=== PATIENT | female | born 1930 | race Caucasian/White ===

== ENCOUNTER → 2016-07-12 | Outpatient (CLI) | payer MEDICARE, OTHER ==
[~2016-07-12] MED LIST: NATURE'S BLEND400 I1 PO; NATURE-THROI16.25 MG; ZANTAC150 MG
== END ==
LOC: LAB 10:31
DX: I10 Essential (primary) hypertension (principal); E03.4 Atrophy of thyroid (acquired)

== ENCOUNTER → 2017-10-12 | Outpatient (CLI) | payer MEDICARE, OTHER ==
[2014-04-08 23:56] VITALS: BP 123/57
[2017-10-12 09:22] LABS: URINE APPEARANCE CLEAR; URINE BILIRUBIN NEGATIVE (NEGATIVE); URINE BLOOD NEGATIVE (NEGATIVE); URINE COLOR YELLOW; URINE GLUCOSE NEGATIVE (NEGATIVE); URINE KETONE NEGATIVE (NEGATIVE); URINE LEUKOCYTE ESTERASE 2+ (NEGATIVE); URINE NITRATE NEGATIVE (NEGATIVE); URINE PROTEIN(semi-quant) NEGATIVE (NEGATIVE); URINE UROBILINOGEN NORMAL (NORMAL)
[2017-10-12 09:23] LABS: URINE MUCUS PRESENT (NOT PRESENT)
== END ==
LOC: LAB 08:45
PROVIDERS: Internal Medicine
DX: R30.0 Dysuria (principal); N39.0 Urinary tract infection, site not specified

== ENCOUNTER → 2017-11-17 | Outpatient (CLI) | payer MEDICARE, OTHER ==
[2014-04-08 23:56] VITALS: BP 123/57
[2017-11-17 10:13] LABS: BASO # 0.1 (0.02-0.10); EOS # 0.1 (0.04-0.40); HEMATOCRIT 41.7 % (37.0-47.0); HEMOGLOBIN 13.8 g/dL (12.5-16.0); LYMPH# 1.7 (1.50-4.00); MEAN CELL VOLUME 89 fl (78-100); MEAN CORPUSCULAR HEMOGLOBIN 30 pg (27-31); MEAN CORPUSCULAR HGB CONC 33 g/dL (33-37); MEAN PLATELET VOLUME 9.9 fl (7.4-10.4); MONO # 0.5 (0.20-0.80); NEU # 3.7 (1.40-6.50); PLATELET COUNT 297 K/mm3 (130-400); RED BLOOD COUNT 4.67 M/mm3 (4.10-5.30); RED CELL DISTRIBUTION WIDTH 14.1 % (11.5-14.5); WHITE BLOOD COUNT 6.1 K/mm3 (4.8-10.8)
[2017-11-17 10:29] LABS: ALBUMIN 4.7 g/dL (3.5-5.0); CALCIUM 9.7 mg/dL (8.4-10.2); POTASSIUM 3.9 mmol/L (3.6-5.0); TOTAL BILIRUBIN 1.3 mg/dL (0.2-1.3)
[2017-11-17 11:17] LABS: ERYTHROCYTE SEDIMENTATION RATE 14 mm/hr (0-30)
== END ==
LOC: LAB 09:52
PROVIDERS: Internal Medicine
DX: Z12.11 Encounter for screening for malignant neoplasm of colon (principal); M10.9 Gout, unspecified; E78.2 Mixed hyperlipidemia; I10 Essential (primary) hypertension; M85.80 Other specified disorders of bone density and structure, unspecified site; E03.9 Hypothyroidism, unspecified; E53.8 Deficiency of other specified B group vitamins

== ENCOUNTER → 2018-01-04 | Outpatient (CLI) | payer MEDICARE, OTHER ==
[2014-04-08 23:56] VITALS: BP 123/57
== END ==
LOC: RAD 12-28 08:30 → MAMMO 12-28 08:30 → RAD 09:11
DX: Z13.820 Encounter for screening for osteoporosis (principal); M81.0 Age-related osteoporosis without current pathological fracture

== ENCOUNTER → 2018-07-26 | Outpatient (CLI) | payer MEDICARE, OTHER ==
[2014-04-08 23:56] VITALS: BP 123/57
[2018-07-26 12:02] LABS: URINE APPEARANCE HAZY; URINE COLOR YELLOW
[2018-07-26 12:03] LABS: URINE BILIRUBIN NEGATIVE (NEGATIVE); URINE BLOOD NEGATIVE (NEGATIVE); URINE GLUCOSE NEGATIVE (NEGATIVE); URINE KETONE NEGATIVE (NEGATIVE); URINE LEUKOCYTE ESTERASE NEGATIVE (NEGATIVE); URINE NITRATE NEGATIVE (NEGATIVE); URINE PROTEIN(semi-quant) NEGATIVE (NEGATIVE); URINE UROBILINOGEN NORMAL (NORMAL)
== END ==
LOC: LAB 11:17
PROVIDERS: Nurse Practitioner Family
DX: R30.0 Dysuria (principal)

== ENCOUNTER 2018-08-09 12:50 | Inpatient (IN) | payer MEDICARE, OTHER ==
[~2018-08-09] VITALS: Ht 154.9 cm; Wt 59.9 kg
[~2018-08-09 12:50] MED LIST changes: +LEVOTHYROXINE0.05 MG PO; -NATURE'S BLEND400 I1 PO; -NATURE-THROI16.25 MG; +OMEPRAZOLE20 MG PO; +VITAMIN D400 UNI1; -ZANTAC150 MG
[2018-08-09 13:15] VITALS: BP 107/68
[2018-08-09 13:20] LABS: EOS # 0.2 (0.04-0.40); EOS % 1.9 % (1.0-5.0); HEMATOCRIT 32.8 % (37.0-47.0); HEMOGLOBIN 10.7 g/dL (12.5-16.0); LYMPH# 1.5 (1.50-4.00); MEAN CELL VOLUME 89 fl (78-100); MEAN CORPUSCULAR HEMOGLOBIN 29 pg (27-31); MEAN CORPUSCULAR HGB CONC 33 g/dL (33-37); MEAN PLATELET VOLUME 10.2 fl (7.4-10.4); MONO # 0.8 (0.20-0.80); NEU # 6.5 (1.40-6.50); PLATELET COUNT 257 K/mm3 (130-400); RED CELL DISTRIBUTION WIDTH 13.7 % (11.5-14.5)
[2018-08-09 13:21] VITALS: BP 107/68
[2018-08-09 13:43] LABS: ALBUMIN 3.6 g/dL (3.5-5.0); CALCIUM 8.4 mg/dL (8.4-10.2); TOTAL BILIRUBIN 0.8 mg/dL (0.2-1.3); TOTAL PROTEIN 6.4 g/dL (6.3-8.2)
[2018-08-09] MEDS ORDERED: VITAMIN C500 M6 (14:06)
[2018-08-09] MEDS ORDERED: CALCIUM 600 MG-1 TAB PO (14:09)
[2018-08-09] MEDS ORDERED: ASPIRIN E.C. 8181 MG PO (14:09)
[2018-08-09] MEDS ORDERED: NORCO 325 MG-51 TA1 PO (14:10)
[2018-08-09 15:27] LABS: URINE APPEARANCE CLEAR; URINE COLOR YELLOW
[2018-08-09 15:28] LABS: URINE BILIRUBIN NEGATIVE (NEGATIVE); URINE BLOOD NEGATIVE (NEGATIVE); URINE GLUCOSE NEGATIVE (NEGATIVE); URINE KETONE NEGATIVE (NEGATIVE); URINE LEUKOCYTE ESTERASE NEGATIVE (NEGATIVE); URINE NITRATE NEGATIVE (NEGATIVE); URINE PROTEIN(semi-quant) NEGATIVE (NEGATIVE); URINE UROBILINOGEN NORMAL (NORMAL)
[2018-08-09 18:00] VITALS: BP 131/68
[2018-08-09 18:53] VITALS: BP 131/68
[2018-08-10 06:08] VITALS: BP 133/75
[2018-08-10 07:04] VITALS: BP 133/75
[2018-08-10 18:57] VITALS: BP 128/95
[2018-08-11 06:23] VITALS: BP 165/88
[2018-08-11 16:50] VITALS: BP 125/75
[2018-08-11 16:51] VITALS: BP 104/66
[2018-08-12 06:07] VITALS: BP 123/65
[2018-08-12 18:30] VITALS: BP 144/75
[2018-08-13 06:40] VITALS: BP 130/70
[2018-08-13 18:46] VITALS: BP 126/66
[2018-08-14 06:38] VITALS: BP 131/71
[2018-08-14 18:01] VITALS: BP 140/75
[2018-08-15 05:49] VITALS: BP 123/73
[2018-08-15 18:36] VITALS: BP 146/76
[2018-08-16 06:32] VITALS: BP 114/69
[2018-08-16 18:25] VITALS: BP 128/73
[2018-08-17 06:06] VITALS: BP 129/75
[2018-08-17 18:00] VITALS: BP 166/77
[2018-08-18 05:55] VITALS: BP 150/73
[2018-08-18 18:58] VITALS: BP 150/72
[2018-08-19 05:31] VITALS: BP 128/75
[2018-08-19 18:15] VITALS: BP 116/72
[2018-08-20 06:27] VITALS: BP 141/76
[2018-08-20 19:02] VITALS: BP 148/50
[2018-08-21 06:21] VITALS: BP 131/77
[2018-08-21 18:00] VITALS: BP 140/67
[2018-08-22 06:27] VITALS: BP 127/71
[2018-08-22 16:52] VITALS: BP 131/64
[2018-08-23 05:46] VITALS: BP 144/74
[2018-08-23] MEDS ORDERED: NORCO 325 MG-51 TA1 PO (12:34)
== END 2018-08-23 13:05 | disposition home health service (06) | DRG 948 ==
LOC: MED/SURG 12:50
PROVIDERS: ADMIT Nurse Practitioner Primary Care
DX: R53.81 Other malaise (principal); S72.401A Unspecified fracture of lower end of right femur, initial encounter for closed fracture; I10 Essential (primary) hypertension; E03.9 Hypothyroidism, unspecified; K21.9 Gastro-esophageal reflux disease without esophagitis; W18.39XA Other fall on same level, initial encounter

== ENCOUNTER → 2018-09-11 | Outpatient (CLI) | payer MEDICARE, OTHER ==
[2018-08-23 05:46] VITALS: BP 144/74
[~2018-09-11] MED LIST changes: +ASPIRIN E.C. 8181 MG PO; +CALCIUM 600 MG-1 TAB PO; +NORCO 325 MG-51 TA1 PO; +VITAMIN C500 M6
[2018-09-11 10:03] LABS: BASO # 0.1 (0.02-0.10); EOS # 0.2 (0.04-0.40); EOS % 2.1 % (1.0-5.0); HEMATOCRIT 39.6 % (37.0-47.0); MEAN CELL VOLUME 89 fl (78-100); MEAN CORPUSCULAR HEMOGLOBIN 29 pg (27-31); MEAN CORPUSCULAR HGB CONC 33 g/dL (33-37); MEAN PLATELET VOLUME 9.6 fl (7.4-10.4); MONO # 0.8 (0.20-0.80); PLATELET COUNT 419 K/mm3 (130-400); RED BLOOD COUNT 4.46 M/mm3 (4.10-5.30); RED CELL DISTRIBUTION WIDTH 13.8 % (11.5-14.5); WHITE BLOOD COUNT 8.1 K/mm3 (4.8-10.8)
[2018-09-11 10:54] LABS: ALBUMIN 4.4 g/dL (3.4-4.8); CALCIUM 10.2 mg/dL (8.4-10.2); POTASSIUM 4.3 mmol/L (3.5-5.1); TOTAL BILIRUBIN 0.8 mg/dL (0.2-1.2)
== END ==
LOC: LAB 09:51
PROVIDERS: Internal Medicine
DX: I10 Essential (primary) hypertension (principal); E03.9 Hypothyroidism, unspecified

== ENCOUNTER 2018-10-10 09:20 | Outpatient (RCR) | payer MEDICARE, OTHER | END 2018-10-12 14:40 | LOC: OPPGERO 09:20 | DX: F43.21 Adjustment disorder with depressed mood (principal); I10 Essential (primary) hypertension; E03.9 Hypothyroidism, unspecified; M81.0 Age-related osteoporosis without current pathological fracture; K21.9 Gastro-esophageal reflux disease without esophagitis ==

== ENCOUNTER 2018-10-15 09:32 | Outpatient (RCR) | payer MEDICARE, OTHER | END 2018-11-14 17:25 | LOC: OPPGERO 09:32 | DX: F43.21 Adjustment disorder with depressed mood (principal); E03.9 Hypothyroidism, unspecified; I10 Essential (primary) hypertension; K80.20 Calculus of gallbladder without cholecystitis without obstruction; M81.0 Age-related osteoporosis without current pathological fracture; K21.9 Gastro-esophageal reflux disease without esophagitis ==

== ENCOUNTER 2018-11-15 09:27 | Outpatient (RCR) | payer MEDICARE, OTHER | END 2018-12-14 13:05 | LOC: OPPGERO 09:27 | DX: F43.21 Adjustment disorder with depressed mood (principal); E03.9 Hypothyroidism, unspecified; I10 Essential (primary) hypertension; K21.9 Gastro-esophageal reflux disease without esophagitis; K80.20 Calculus of gallbladder without cholecystitis without obstruction; M81.0 Age-related osteoporosis without current pathological fracture; Z79.1 Long term (current) use of non-steroidal anti-inflammatories (NSAID); Z79.82 Long term (current) use of aspirin; Z79.891 Long term (current) use of opiate analgesic; Z79.899 Other long term (current) drug therapy ==

== ENCOUNTER → 2019-01-31 | Outpatient (CLI) | payer MEDICARE, OTHER ==
[2019-01-31 13:18] LABS: BASO # 0.1 (0.02-0.10); EOS # 0.3 (0.04-0.40); EOS % 3.9 % (1.0-5.0); HEMATOCRIT 38.7 % (37.0-47.0); HEMOGLOBIN 12.6 g/dL (12.5-16.0); LYMPH# 2.1 (1.50-4.00); MEAN CELL VOLUME 87 fl (78-100); MEAN CORPUSCULAR HEMOGLOBIN 28 pg (27-31); MEAN CORPUSCULAR HGB CONC 33 g/dL (33-37); MEAN PLATELET VOLUME 10.2 fl (7.4-10.4); MONO # 0.7 (0.20-0.80); NEU # 4.5 (1.40-6.50); PLATELET COUNT 342 K/mm3 (130-400); RED BLOOD COUNT 4.43 M/mm3 (4.10-5.30); RED CELL DISTRIBUTION WIDTH 14.9 % (11.5-14.5); WHITE BLOOD COUNT 7.6 K/mm3 (4.8-10.8)
[2019-01-31 13:27] LABS: POTASSIUM 4.5 mmol/L (3.5-5.1)
[2019-01-31 13:28] LABS: ALBUMIN 4.4 g/dL (3.4-4.8)
[2019-01-31 13:29] LABS: CALCIUM 10.1 mg/dL (8.3-10.5)
[2019-01-31 13:30] LABS: TOTAL PROTEIN 7.9 g/dL (6.2-8.1)
[2019-01-31 13:32] LABS: TOTAL BILIRUBIN 0.6 mg/dL (0.2-1.2)
[2019-01-31 14:20] LABS: ERYTHROCYTE SEDIMENTATION RATE 40 mm/hr (0-30)
== END ==
LOC: LAB 12:51
PROVIDERS: Internal Medicine
DX: Z12.11 Encounter for screening for malignant neoplasm of colon (principal); I11.0 Hypertensive heart disease with heart failure; E78.2 Mixed hyperlipidemia; E53.8 Deficiency of other specified B group vitamins; M85.89 Other specified disorders of bone density and structure, multiple sites; M1A.9XX0 Chronic gout, unspecified, without tophus (tophi); E03.9 Hypothyroidism, unspecified

== ENCOUNTER → 2019-02-11 | Outpatient (CLI) | payer MEDICARE, OTHER | LOC: LAB 13:45 | DX: Z12.11 Encounter for screening for malignant neoplasm of colon (principal); E53.8 Deficiency of other specified B group vitamins; I10 Essential (primary) hypertension ==

== ENCOUNTER 2019-09-11 13:13 | Emergency (ER) | payer MEDICARE, OTHER ==
[~2019-09-11 13:13] MED LIST changes: -OMEPRAZOLE20 MG PO; +PRILOSEC OTC20 MG PO; +VITAMIN D325 MC1; -VITAMIN D400 UNI1
[2019-09-11 13:55] LABS: HEMATOCRIT 40.5 % (37.0-47.0); HEMOGLOBIN 13.1 g/dL (12.5-16.0); MEAN CELL VOLUME 89 fl (78-100); MEAN CORPUSCULAR HEMOGLOBIN 29 pg (27-31); MEAN CORPUSCULAR HGB CONC 32 g/dL (33-37); MEAN PLATELET VOLUME 10.1 fl (7.4-10.4); PLATELET COUNT 400 K/mm3 (130-400); RED BLOOD COUNT 4.55 M/mm3 (4.10-5.30); RED CELL DISTRIBUTION WIDTH 14.1 % (11.5-14.5); WHITE BLOOD COUNT 11.8 K/mm3 (4.8-10.8)
[2019-09-11 13:58] LABS: ALBUMIN 4.1 g/dL (3.4-4.8); POTASSIUM 3.9 mmol/L (3.5-5.1)
[2019-09-11 13:59] LABS: CALCIUM 9.5 mg/dL (8.3-10.5)
[2019-09-11 14:01] LABS: TOTAL PROTEIN 7.4 g/dL (6.2-8.1)
[2019-09-11 14:02] LABS: TOTAL BILIRUBIN 0.6 mg/dL (0.2-1.2)
[2019-09-11] MEDS ORDERED: ASPIRIN E.C. 8181 MG PO (14:12)
[2019-09-11] MEDS ORDERED: PREDNISONE10 MG PO (14:12)
[2019-09-11] MEDS ORDERED: ACETAMINOPHEN325 M1 PO (14:13)
[2019-09-11] MEDS ORDERED: CALCIUM CARBONATE PO (14:13)
[2019-09-11] MEDS ORDERED: VITAMIN B122500 MC1 (14:14)
[2019-09-11 14:30] LABS: LYMPHOCYTE 9 % (20-51); MONOCYTE 5 % (3-10); NEUTROPHILS 84 % (42-75)
[2019-09-11 14:36] LABS: URINE APPEARANCE CLOUDY; URINE BILIRUBIN NEGATIVE (NEGATIVE); URINE BLOOD 50 ery/uL (NEGATIVE); URINE COLOR YELLOW; URINE GLUCOSE NEGATIVE (NEGATIVE); URINE KETONE NEGATIVE (NEGATIVE); URINE LEUKOCYTE ESTERASE 2+ (NEGATIVE); URINE MUCUS PRESENT (NOT PRESENT); URINE NITRATE NEGATIVE (NEGATIVE); URINE PROTEIN(semi-quant) TRACE mg/dL (NEGATIVE); URINE UROBILINOGEN NORMAL (NORMAL); URINE WBC >50 /hpf (0-3)
[2019-09-11 15:30] VITALS: BP 122/93
== END 2019-09-11 15:30 | disposition other institution (70) ==
LOC: ED 13:13
PROVIDERS: Physician Assistant
DX: K57.32 Diverticulitis of large intestine without perforation or abscess without bleeding (principal); N39.0 Urinary tract infection, site not specified; I10 Essential (primary) hypertension; K21.9 Gastro-esophageal reflux disease without esophagitis; Z90.89 Acquired absence of other organs; Z79.82 Long term (current) use of aspirin
CPT/HCPCS: J3010; Q9967

== ENCOUNTER 2019-09-21 12:09 | Inpatient (IN) | payer MEDICARE, OTHER ==
[~2019-09-21] VITALS: Ht 157.5 cm; Wt 58.7 kg
[~2019-09-21 12:09] MED LIST changes: +ACETAMINOPHEN325 M1 PO; +CALCIUM CARBONATE PO; +PREDNISONE10 MG PO; +VITAMIN B122500 MC1
[2019-09-21 13:09] VITALS: BP 147/69
[2019-09-21] MEDS ORDERED: HCTZ 25MG25 MG PO (13:47)
[2019-09-21] MEDS ORDERED: ZESTRIL10 M1 PO (13:50)
[2019-09-21] MEDS ORDERED: FLAGYL500 M1 PO (13:53)
[2019-09-21] MEDS ORDERED: BACTRIM DS TAB1 EACH PO (13:54)
[2019-09-21] MEDS ORDERED: NATURAL VITAM1000 MG PO (13:57)
[2019-09-21] MEDS ORDERED: VITAMIN B122500 MC1 PO (13:57)
[2019-09-21] MEDS ORDERED: OS-CAL 500+D31 EACH PO (13:59)
[2019-09-21] MEDS ORDERED: ANTACID500 M1 PO (14:00)
[2019-09-21 18:06] VITALS: BP 163/81
[2019-09-22 05:38] VITALS: BP 156/90; BP 166/82
[2019-09-22 07:51] LABS: HEMATOCRIT 29.9 % (37.0-47.0); HEMOGLOBIN 9.4 g/dL (12.5-16.0); MEAN CELL VOLUME 88 fl (78-100); MEAN CORPUSCULAR HEMOGLOBIN 28 pg (27-31); MEAN CORPUSCULAR HGB CONC 31 g/dL (33-37); MEAN PLATELET VOLUME 8.7 fl (7.4-10.4); RED BLOOD COUNT 3.39 M/mm3 (4.10-5.30); RED CELL DISTRIBUTION WIDTH 15.3 % (11.5-14.5); WHITE BLOOD COUNT 12.4 K/mm3 (4.8-10.8)
[2019-09-22 08:25] LABS: PLATELET COUNT 761 K/mm3 (130-400)
[2019-09-22 08:26] LABS: LYMPHOCYTE 8 % (20-51); MONOCYTE 4 % (3-10); NEUTROPHILS 87 % (42-75)
[2019-09-22 08:28] LABS: POTASSIUM 3.6 mmol/L (3.5-5.1)
[2019-09-22 08:29] LABS: CALCIUM 8.5 mg/dL (8.3-10.5)
[2019-09-22 08:30] LABS: TOTAL PROTEIN 5.6 g/dL (6.2-8.1)
[2019-09-22 08:32] LABS: TOTAL BILIRUBIN 0.4 mg/dL (0.2-1.2)
[2019-09-22 18:08] VITALS: BP 150/76
[2019-09-23 05:06] VITALS: BP 156/76
[2019-09-23 17:08] VITALS: BP 136/83
[2019-09-24 05:11] VITALS: BP 146/77
[2019-09-24 17:11] VITALS: BP 130/67
[2019-09-25 05:53] VITALS: BP 111/61
[2019-09-25 16:36] VITALS: BP 133/72
[2019-09-26 05:37] VITALS: BP 124/62
[2019-09-26 17:48] VITALS: BP 160/80
[2019-09-27 05:53] VITALS: BP 136/64
[2019-09-27] MEDS ORDERED: BACTRIM DS TAB1 EACH PO (09:27)
[2019-09-27] MEDS ORDERED: FLAGYL500 M1 PO (09:27)
[2019-09-27] MEDS ORDERED: PRILOSEC OTC20 MG PO (09:28)
[2019-09-27] MEDS ORDERED: LEXAPRO 10MG10 MG PO (09:29)
== END 2019-09-27 11:35 | disposition home health service (06) | DRG 948 ==
LOC: MED/SURG 12:09
PROVIDERS: Physician Assistant; ADMIT Internal Medicine
DX: R53.81 Other malaise (principal); K57.92 Diverticulitis of intestine, part unspecified, without perforation or abscess without bleeding; I10 Essential (primary) hypertension; M10.9 Gout, unspecified; K21.9 Gastro-esophageal reflux disease without esophagitis; E03.9 Hypothyroidism, unspecified; F41.9 Anxiety disorder, unspecified; F32.9 Major depressive disorder, single episode, unspecified; Z79.82 Long term (current) use of aspirin; Z79.1 Long term (current) use of non-steroidal anti-inflammatories (NSAID)

== ENCOUNTER → 2019-10-10 | Outpatient (CLI) | payer MEDICARE, OTHER ==
[2019-09-27 05:53] VITALS: BP 136/64
[~2019-10-10] MED LIST changes: +ANTACID500 M1 PO; +BACTRIM DS TAB1 EACH PO; +FLAGYL500 M1 PO; +HCTZ 25MG25 MG PO; +LEXAPRO 10MG10 MG PO; +NATURAL VITAM1000 MG PO; +OS-CAL 500+D31 EACH PO; +VITAMIN B122500 MC1 PO; +ZESTRIL10 M1 PO
[2019-10-10 12:00] LABS: BASO # 0.1 (0.02-0.10); EOS # 0.2 (0.04-0.40); EOS % 2.6 % (1.0-5.0); HEMATOCRIT 32.9 % (37.0-47.0); HEMOGLOBIN 10.6 g/dL (12.5-16.0); MEAN CELL VOLUME 89 fl (78-100); MEAN CORPUSCULAR HEMOGLOBIN 29 pg (27-31); MEAN CORPUSCULAR HGB CONC 32 g/dL (33-37); MEAN PLATELET VOLUME 8.8 fl (7.4-10.4); MONO # 0.9 (0.20-0.80); PLATELET COUNT 447 K/mm3 (130-400); RED BLOOD COUNT 3.69 M/mm3 (4.10-5.30); RED CELL DISTRIBUTION WIDTH 15.3 % (11.5-14.5); WHITE BLOOD COUNT 8.2 K/mm3 (4.8-10.8)
[2019-10-10 12:13] LABS: ALBUMIN 3.9 g/dL (3.4-4.8)
[2019-10-10 12:14] LABS: POTASSIUM 4.2 mmol/L (3.5-5.1)
[2019-10-10 12:15] LABS: CALCIUM 8.9 mg/dL (8.3-10.5)
[2019-10-10 12:16] LABS: TOTAL PROTEIN 7.1 g/dL (6.2-8.1)
[2019-10-10 12:18] LABS: TOTAL BILIRUBIN 0.4 mg/dL (0.2-1.2)
[2019-10-10 12:22] LABS: MAGNESIUM 1.76 mg/dL (1.60-2.60)
== END ==
LOC: LAB 11:46
PROVIDERS: Internal Medicine
DX: M85.89 Other specified disorders of bone density and structure, multiple sites (principal); I10 Essential (primary) hypertension; E03.9 Hypothyroidism, unspecified; E53.8 Deficiency of other specified B group vitamins

== ENCOUNTER → 2019-10-18 | Outpatient (CLI) | payer MEDICARE, OTHER ==
[2019-09-27 05:53] VITALS: BP 136/64
[2019-10-18 10:14] LABS: BASO # 0.1 (0.02-0.10); EOS # 0.2 (0.04-0.40); EOS % 2.8 % (1.0-5.0); HEMATOCRIT 33.4 % (37.0-47.0); HEMOGLOBIN 10.6 g/dL (12.5-16.0); LYMPH# 1.5 (1.50-4.00); MEAN CELL VOLUME 90 fl (78-100); MEAN CORPUSCULAR HEMOGLOBIN 28 pg (27-31); MEAN CORPUSCULAR HGB CONC 32 g/dL (33-37); MEAN PLATELET VOLUME 8.9 fl (7.4-10.4); MONO # 0.7 (0.20-0.80); NEU # 3.7 (1.40-6.50); PLATELET COUNT 430 K/mm3 (130-400); RED BLOOD COUNT 3.73 M/mm3 (4.10-5.30); RED CELL DISTRIBUTION WIDTH 15.1 % (11.5-14.5); WHITE BLOOD COUNT 6.2 K/mm3 (4.8-10.8)
[2019-10-18 10:26] LABS: POTASSIUM 3.8 mmol/L (3.5-5.1)
[2019-10-18 10:28] LABS: CALCIUM 9.1 mg/dL (8.3-10.5); URINE APPEARANCE CLEAR; URINE COLOR YELLOW
[2019-10-18 10:29] LABS: PH-URINE 5.5 (5.0 - 8.0); URINE BILIRUBIN NEGATIVE (NEGATIVE); URINE BLOOD NEGATIVE (NEGATIVE); URINE GLUCOSE NEGATIVE (NEGATIVE); URINE KETONE NEGATIVE (NEGATIVE); URINE LEUKOCYTE ESTERASE TRACE (NEGATIVE); URINE NITRATE NEGATIVE (NEGATIVE); URINE PROTEIN(semi-quant) NEGATIVE (NEGATIVE); URINE UROBILINOGEN NORMAL (NORMAL)
== END ==
LOC: LAB 09:49
PROVIDERS: Internal Medicine
DX: I10 Essential (primary) hypertension (principal); E87.1 Hypo-osmolality and hyponatremia; R30.0 Dysuria

== ENCOUNTER → 2019-11-07 | Outpatient (CLI) | payer MEDICARE, OTHER ==
[2019-11-07 15:35] LABS: POTASSIUM 4.3 mmol/L (3.5-5.1)
[2019-11-07 15:36] LABS: CALCIUM 9.3 mg/dL (8.3-10.5)
== END ==
LOC: LAB 15:07
PROVIDERS: Internal Medicine
DX: I10 Essential (primary) hypertension (principal)